=== PATIENT | female | born 1980 | race Caucasian/White ===

== ENCOUNTER 2017-07-27 09:00 | Inpatient (IN) | payer OTHER ==
[2017-07-27] VITALS (19 sets, daily range): BP systolic 105–127; BP diastolic 53–89; PULSE 70–99; TEMP 97.6–98.5
[~2017-07-27] VITALS: Ht 152.5 cm; Wt 87.7 kg
[~2017-07-27 09:00] MED LIST: PRENATAL MVI PO
[2017-07-27 09:49] LABS: BASO % 0.3 % (0.0-2.0); EOS # 0.1 (0.0-0.7); EOS % 0.9 % (0-4.0); GRAN # 6.6 (1.4-6.5); GRAN % 72.3 % (42.2-75.2); LYMPH # 1.7 (1.2-3.4); LYMPH % 18.9 % (20.0-51.0); MEAN CELL VOLUME 77 fl (80.0-100.0); MEAN CORPUSCULAR HEMOGLOBIN 25 pg (27.0-31.0); MEAN CORPUSCULAR HGB CONC 32 g/dl (33.0-37.0); MONO # 0.7 (0.1-0.6); MONO % 7.1 % (1.7-9.3); PLATELET COUNT 300 K/mm3 (130-400); RED BLOOD COUNT 4.47 M/mm3 (4.10-5.30)
[2017-07-27 09:56] LABS: HEMATOCRIT 34.3 % (37.0-47.0)
[2017-07-27] MEDS ORDERED: MOTRIN 800800 MG/TAB PO (10:36)
[2017-07-27] MEDS ORDERED: PERCOCET 325 MG1 TA2 PO (10:36)
[2017-07-28 01:20] VITALS: BP 116/61; PULSE 91; TEMP 98.4
[2017-07-28 05:08] VITALS: BP 128/82; PULSE 106; TEMP 98.4
[2017-07-28 07:25] VITALS: BP 126/76; PULSE 96; TEMP 98.2
[2017-07-28 07:33] LABS: HEMOGLOBIN 10.3 g/dl (12.5-16.0)
[2017-07-28 07:34] LABS: HEMATOCRIT 32.8 % (37.0-47.0)
[2017-07-28 12:25] VITALS: BP 118/66; PULSE 91; TEMP 97.8
[2017-07-28 16:55] VITALS: BP 119/63; PULSE 99; TEMP 98
[2017-07-28 20:40] VITALS: BP 126/74; PULSE 106; TEMP 98.9
[2017-07-29 07:15] VITALS: BP 118/68; PULSE 99; TEMP 98.4
[2017-07-29 16:22] VITALS: BP 113/72; PULSE 120; TEMP 98.1
[2017-07-29 20:00] VITALS: BP 121/79; PULSE 98; TEMP 98.8
[2017-07-30 09:12] VITALS: BP 132/79; PULSE 104; TEMP 98.5
== END 2017-07-30 13:05 | disposition home or self-care (01) | DRG 766 ==
LOC: MEDICAL 09:00 → OB 09:00 → LDR 09:41 → OB 07-30 13:05
PROVIDERS: Obstetrics & Gynecology
PROC: 10D00Z1 Extraction of Products of Conception, Low, Open Approach (ICD-10-PCS; principal; 2017-07-27)
PROC: 0UT70ZZ Resection of Bilateral Fallopian Tubes, Open Approach (ICD-10-PCS; 2017-07-27)
DX: O34.211 Maternal care for low transverse scar from previous cesarean delivery (principal); Z37.0 Single live birth; Z3A.39 39 weeks gestation of pregnancy; Z30.2 Encounter for sterilization
CPT/HCPCS: J0171; J0690; J1885; J2250; J2270; J2370; J2405; J2590; J7120